=== PATIENT | female | born 1960 | race Caucasian/White ===

== ENCOUNTER 2018-03-28 07:30 | Outpatient (RCR) | payer BC, SELFPAY ==
--- NOTE | 2018-03-14 07:30 | NT_ITS ---
03/14/18 S: Patricia states she attended her independent program 3 days last week.. It is difficult for her to exercise with this humidity and heat. Overall she feels her functional activity at home is approaching what it was before she fractured her humerus. States she has been more compliant using her carla system at home. O: I assess her movement patterns, actively she is approximately 100 degrees with scapular substitution and tilting her back. I can passively lift her to well over 120, but she has a lag of about 30 degrees. She is able to put her L hand close to her L buttock now. Her AAROM in supine position ER is 90 degrees, IR is 75-80. Her pure GH movements are approximately 65-70 degrees on the L, 90 degrees on the R. She tolerates good resistance to ER and IR, scaption/abduction though is weak, as well as pure abduction. I review her carla exercises, and after she stretches I want her to try to hold that position, at its maximum height. Also the wall exercise when she is simulating scrubbing a wall overhead to lift her hand off the wall, along with other active movements in the prone position. After I mobilize her in supine position, I work on the lift component of D2 and then the entire D1 pattern. I then perform anti-gravity strengthening exercises in sidelying position, then in prone. AA with her arm resting on the plinth into forward elevation. Have her try to hold it isometrically at end range, which she is still unable to do. In close pack position of flexion/ abduction and ER. 30 mins at no charge completely her wellness in the clinic also. A: ROM continues to improve, she does have hypomobility at the GH joint of approximately 20 degrees, and weakness with her shoulder musculature, particularly the supraspinatus/deltoid component. P: Has a follow up in one week, she is going to continue with her exercises here in clinic on a daily basis. DLW/dl
--- NOTE | 2018-03-21 07:30 | NT_ITS ---
03/21/18 Patricia states she attended the clinic 2x last week, including the day of her treatment. She had other things going on later in the week, but she stated that she was still active, walking, etc . . . She also notes that she has been compliant with her HEP, frustrated over her inability to reach up overhead yet, which impairs all of her functional activities out to the side and overhead. Today session consist of mobilizing her in supine position, I can get full ER, IR starts creating some discomfort and resistance at around 70 degrees. I can eventually get her to 80 degrees with MET's and rolling, gliding the humeral head. She can lift her arm up to the 90 degree angle, perform circular movements, also protraction, retraction. I then do some PNF 1 and 2 patterns focusing on the lift component which is weak compared to the chop component. I then have her sidelying position and she can anti-gravity externally rotate with her elbow tucked into her side as well as ab/adduction, there is some trunk substitution. In prone position, she can extend to approximately +10 degrees of extension. I lift her up to +30 and have her try to hold it isometrically. We then work on weight shifting from 1 elbow to the other and when on the R elbow reaching forward and then AA range with her forehead resting on her R forearm and focusing on shoulder elevation. Also abduction, etc. . . . We then finish with carla and works out in the clinic to perform her wellness. Spends 75 mins total. No charge for today's session. She is encouraged to attend daily for regular conditioning and strengthening exercises. If not, make sure she is doing at home. Will have a follow up with me in one week. DLW/dl
--- NOTE | 2018-03-28 07:30 | NT_ITS ---
03/28/18 No new complaints offered. She feels that she uses her arm overhead better than she had a few weeks ago. It is inconsistent though. She also notes occasional vice like sensation around her upper arm which fluctuates from day to day. Today's session consisted of mobilizing her shoulder in supine position starting with rotation, flexion along with active movements overhead. Also in sidelying position ER and ab/adduction. She works into the abducted position, she tends to rotate her trunk, so I am trying to get her to stabilize it, keeping her trunk perpendicular to the rajwinder. Then prone on elbows with weight shifts, then forward elevation AA and then have her try to hold it isometrically. I can get her to around 145, but she has a lag of about 20-30 degrees. I put her in a close pack position of flexion/abduction, ER. She cannot fully abduct actively, but passively especially if I apply a posterior, humeral glide its a better position, but she cannot hold it isometrically. I upgrade her HEP to include some tubing exercises with scapular retraction and into ER with elbow tucked into her side (see copy). She was issued tubing for home along with illustrated hand out. She then completes her [facility] program in the clinic (see flow sheet). She has a follow up appt in one week, but continuing with her wellness as often as she can. She has been averaging 2-3x a week. NO CHARGE DLW/dl
--- NOTE | 2018-04-04 15:54 | NT_ITS ---
Patricia cancelled today's scheduled appointment. Obinna Aguayo P.T. gc
== END 2018-04-08 23:59 | disposition home or self-care (01) ==
LOC: PT 07:30
PROVIDERS: PCP Family Medicine; Referring Provider Orthopaedic Surgery; Visit Provider Orthopaedic Surgery
DX: S42.352D Displaced comminuted fracture of shaft of humerus, left arm, subsequent encounter for fracture with routine healing (principal)

== ENCOUNTER 2018-04-19 14:20 | Outpatient (CLI) | payer BC, SELFPAY ==
--- NOTE | 2018-04-19 09:57 | DI.RAD_ITS ---
SYMPTOM/DIAGNOSIS: F/U ORIF LEFT HUMERUS: Comparison is made with 02/08/18. A fixation plate remains in place in the humerus for fracture fixation. There has been no change in fracture alignment. No new abnormalities are seen.
== END 2018-04-19 14:40 ==
PROVIDERS: PCP Family Medicine; Visit Provider Orthopaedic Surgery
DX: S42.352D Displaced comminuted fracture of shaft of humerus, left arm, subsequent encounter for fracture with routine healing (principal)
CPT/HCPCS: 73060

== ENCOUNTER 2018-05-03 13:45 | Outpatient (CLI) | payer BC, SELFPAY ==
--- NOTE | 2018-05-03 11:35 | DI.RAD_ITS ---
SYMPTOMS/DIAGNOSIS: PAIN IN RIGHT KNEE, M25.561 RIGHT KNEE: Four views. There is moderate narrowing of both the medial and lateral femorotibial joint space. Periarticular spurring is seen involving all three joint compartments. No acute fracture or dislocation is seen. The bones appear osteopenic. There is a suprapatellar joint effusion present. The soft tissues are otherwise unremarkable. IMPRESSION: Moderate degenerative changes of the right knee.
== END 2018-05-03 14:05 ==
PROVIDERS: PCP Family Medicine; Visit Provider Family Medicine
DX: M25.561 Pain in right knee (principal); M17.11 Unilateral primary osteoarthritis, right knee
CPT/HCPCS: 73562

== ENCOUNTER 2018-07-05 01:07 | Outpatient (CLI) | payer BC, SELFPAY ==
--- NOTE | 2018-07-05 14:30 | DI.MAMMO_ITS ---
SYMPTOMS/DIAGNOSIS: SCREENING, Z12.31 BILATERAL SCREENING MAMMOGRAM: Mammograms were interpreted according to the usual protocol including computer analysis with CAD system, tomosynthesis and C view imaging. This is a baseline examination. The breasts are composed of fatty density tissue, breast density category A. No suspicious masses or suspicious microcalcifications are seen. IMPRESSION: Category 1A, negative mammogram. Yearly screening mammography is recommended. [facility] ASSESSMENT OF FINDINGS: Negative. Category 1. Patient will receive a letter notifying them of these results. BI-RAD category A. The breasts are almost entirely fatty.
== END 2018-07-05 01:27 ==
PROVIDERS: PCP Family Medicine; Visit Provider Family Medicine
DX: Z12.31 Encounter for screening mammogram for malignant neoplasm of breast (principal)
CPT/HCPCS: 77063; 77067

== ENCOUNTER 2018-07-08 07:43 | Outpatient (CLI) | payer BC, SELFPAY ==
[2018-07-08 09:41] LABS: Anion Gap 9.2 mmol/L (3-11); BUN 13 mg/dL (7-18); CO2 25.8 mmol/L (21.0-32.0); CREATININE 0.85 mg/dL (0.55-1.02); Calcium 8.6 mg/dL (8.5-10.1); Chloride 106 mmol/L (98-107); Cholesterol 168 mg/dL (50-200); Glucose 100 mg/dL (70-100); HDL Cholesterol 32 mg/dL (40-60); LDL CHOLESTEROL 127 mg/dL (<100); Potassium 4.1 mmol/L (3.5-5.1); Sodium 141 mmol/L (136-145); Triglyceride 65 mg/dL (30-150)
== END 2018-07-08 08:03 ==
PROVIDERS: PCP Family Medicine; Visit Provider Family Medicine
DX: Z00.00 Encounter for general adult medical examination without abnormal findings (principal); Z13.228 Encounter for screening for other metabolic disorders; Z13.220 Encounter for screening for lipoid disorders
CPT/HCPCS: 36415; 80048; 80061; 83721

== ENCOUNTER 2018-07-19 09:17 | Outpatient (CLI) | payer BC, SELFPAY ==
--- NOTE | 2018-07-19 08:58 | DI.RAD_ITS ---
SYMPTOM/DIAGNOSIS: F/U NON UNION LEFT HUMERUS: Comparison is made with 19 Apr 2018. There has been no change in the screw and plate fixation along the humeral shaft or fracture alignment. There has been continued healing when compared with the previous exam.
== END 2018-07-19 09:37 ==
PROVIDERS: PCP Family Medicine; Visit Provider Orthopaedic Surgery
DX: S42.352D Displaced comminuted fracture of shaft of humerus, left arm, subsequent encounter for fracture with routine healing (principal)
CPT/HCPCS: 73060

== ENCOUNTER 2018-11-30 10:06 | Day surgery (SDC) | payer BC, SELFPAY ==
--- NOTE | 2018-11-30 07:06 | W.COLOREPORT ---
Date of service: 11/30/18 Time of Service: 11:38 Colonoscopy Report Date of procedure: 11/30/18 Pre-op diagnosis general: Colon Cancer screening/ Chronic diarrhea Post-op diagnosis procedure note: other (Magana-diverticulosis, descending colon polyp) Procedure: Colonoscopy with polypectomy by cold forceps Surgeon: Tara Cameron Anesthesia proc note operative: other (general/ ASA 3/ Sadaf Hidalgo CRNA and DAVID Hernandez) Estimated blood loss (mL): 3 Pathology: other (descending colon polyp) Complications: None Disposition: same day Indications: Mrs. Singletary is a pleasant 58 year old female seen in the office for a screening colonoscopy. She also has a history of chronic diarrhea. Risks, benefits and complications have been reviewed. Complications include but are not limited to bleeding, pain, perforation, missed small lesion/polyp, sore throat, aspiration and adverse reaction to the medications. Questions were entertained and answered to their satisfaction and they wished to proceed. No guarantees were given or implied. Prep: Miralax/Dulcolax Procedure Start Time: 11:38 Procedure End Time: 12:00 Retraction Time: 19 minutes Findings: One sessile descending colon polyp and magana-diverticulosis left > then right. Procedure Description: After informed consent was obtained the patient was taken to the procedure room and placed in a left decubitous position. Monitors were applied and a time out was done. The patients name, date of , procedure, allergies to medications and metal in their body was reviewed. The patient was then sedated. Once sedated and comfortable a rectal exam was done. External exam was normal. Internal exam revealed a normal sphincter tone and no palpable masses. The scope was then introduced and retro-flexed. No internal hemorrhoids were identified. The scope was then advanced to the cecum without difficulty. The TI and appendiceal orifice were identified. The prep was adequate. The scope was then slowly retracted over 19 minutes back into the rectum. Polyps were removed in the descending colon. The scope was removed and the patient was woken up and taken back to Same day surgery in stable condition. The patient tolerated the procedure well and there were no immediate complications. Follow up: The patient should follow up in 3-5 years unless they develop changes in bowel habits or other new gastrointestinal complaints.
--- NOTE | 2018-11-30 07:09 | COLE_ITS ---
Date of service: 11/30/18 Time of Service: 11:38 Colonoscopy Report Date of procedure: 11/30/18 Pre-op diagnosis general: Colon Cancer screening/ Chronic diarrhea Post-op diagnosis procedure note: other (Magana-diverticulosis, descending colon polyp) Procedure: Colonoscopy with polypectomy by cold forceps Surgeon: Tara Cameron Anesthesia proc note operative: other (general/ ASA 3/ Sadaf Hidalgo CRNA and DAVID Hernandez) Estimated blood loss (mL): 3 Pathology: other (descending colon polyp) Complications: None Disposition: same day Indications: Mrs. Singletary is a pleasant 58 year old female seen in the office f or a screening colonoscopy. She also has a history of chronic diarrhea. Risks, benefits and complications have been reviewed. Complications include but are not limited to bleeding, pain, perforation, missed small lesion/polyp, sore throat, aspiration and adverse reaction to the medications. Questions were entertained and answered to their satisfaction and they wished to proceed. No guarantees we re given or implied. Prep: Miralax/Dulcolax Procedure Start Time: 11:38 Procedure End Time: 12:00 Retraction Time: 19 minutes Findings: One sessile descending colon polyp and magana-diverticulosis left > then right. Procedure Description: After informed consent was obtained the patient was taken to the procedure room and placed in a left decubitous position. Monitors were applied and a time out was done. The patients name, date of , procedure, allergies to medications and metal in their body was reviewed. The patient was then sedated. Once sedated and comfortable a rectal exam was done. External exam was normal. Internal exam revealed a normal sphincter tone and no palpable masses. The scope was then introduced and retro-flexed. No internal hemorrhoids were identified. The scope was then advanced to the cecum without difficulty. The TI and appendiceal orifice were identified. The prep was adequate. The scope was then slowly retracted over 19 minutes back into the rectum. Polyps were removed in the descending colon. The scope was removed and the patient was woken up and taken back to Same day surgery in stable condition. The patient tolerated the procedure well and there were no immediate complications. Follow up: The patient should follow up in 3-5 years unless they develop changes in bowel habits or other new gastrointestinal complaints.
--- NOTE | 2018-11-30 07:11 | W.PM.DSUDISC ---
Discharge Plan Disposition Patient Disposition: HOME Condition: Good Discharge Details Reason For Visit: Colon Cancer screening Attending Provider: Tara Cameron Primary Care Provider: Mariano Alcantar Home Meds and New Rx's Prescriptions: Continued sertraline 50 mg tablet 50 mg PO DAILY Qty: 90 RF: 3 ibuprofen 800 mg tablet 800 mg PO TID PRN (Reason: pain) Qty: 30 RF: 2 Discharge Instructions Instructions: Colonoscopy (DC), Diverticulosis (DC), Colorectal Polyps (DC) Additional Instructions: Findings: 1 polyp Diverticulosis Follow up: 3-5 years Please call if you develop: fevers >101.5 Nausea or Vomiting Abdominal pain that is not transient DAY SURGERY UNIT POST COLONOSCOPY INSTRUCTIONS 1. Because there will be medication in your system for the next 24 hours, you may feel a little sleepy. Your coordination will be affected. Therefore: a. Do not drive or operate dangerous equipment for 24 hours. b. Do not drink alcohol beverages for 24 hours (not even beer). c. Plan to go home and rest for the day. 2. Generally there are no restrictions on your activity after a day or so has gone by, but you may feel a bit fatigued for a few days. 3 After you arrive home you may have a light meal and return to a normal diet as you can tolerate it without feeling sick to your stomach. 4. After surgery, you may feel pain or discomfort. This should be only transient, but if it persists please contact your doctor. 5. If there are any questions regarding the findings of your procedure, please feel free to contact your doctor. 6. If you are unable to contact your doctor with a problem, contact the hospital at [phone]. 7. Continue all your regular medications unless directed otherwise. I understand the above instructions and have no questions. Signature of Patient or Responsible Adult Escort Date/Time Name of Responsible Adult Escort Signature of Nurse Date/Time Activity:: Activity as Tolerated Diet:: high fiber diet Discharge Orders Discharge Orders: Discharge Order (Routine); Ordered 11/30/18 Ordered By: Tara Cameron DS: Diagnosis Discharge Diagnosis (1) S/P colonoscopy: Status: Acute (2) Colorectal polyps: Status: Acute (3) Diverticulosis: Status: Acute
[2018-11-30 10:24] VITALS: BP 165/69; PULSE 64; RESP 18; TEMP 36.6; O2SAT 96
[2018-11-30] MEDS: Lactated Ringers 1,000 ML 80 ML IV (10:45)
--- NOTE | 2018-11-30 11:50 | BOWEL_PTH ---
PATIENT: Patricia Singletary LOC: [facility] U#:[id number] AGE/SX: 58/F ROOM: RE11/30/[address]: Tara Cameron MD : 1960 BED: DIS: 11/30/2018 SPEC #: [id number] RECD: 11/30/18 12:51 STATUS: [facility] REQ #: [id number] NIDHI: 11/30/18 11:[address]: Tara Cameron DEPT: Surgical Specimen RECD BY: Valorie Hou ENTERED: 11/30/18 12:51 SP TYPE: Bowel OTHR DR: Mariano Alcantar MD Tissues: 1 - BIOPSY BOWEL Procedures: GROSS AND MICRO LEVEL 4 Comments: [id number]
[2018-11-30 12:39] VITALS: BP 125/63; PULSE 53; RESP 18; TEMP 36.4; O2SAT 98
== END 2018-11-30 13:05 | disposition home or self-care (01) ==
LOC: SUR 10:07
PROVIDERS: PCP Family Medicine; Visit Provider Surgery
PROC: 0DJD8ZZ Inspection of Lower Intestinal Tract, Via Natural or Artificial Opening Endoscopic (ICD-10-PCS; CPT 45378; principal; 2018-11-30 10:45)
DX: Z12.11 Encounter for screening for malignant neoplasm of colon (principal); R19.7 Diarrhea, unspecified; D12.4 Benign neoplasm of descending colon; K57.30 Diverticulosis of large intestine without perforation or abscess without bleeding
CPT/HCPCS: 45380; 88305

== ENCOUNTER 2020-01-25 04:37 | Outpatient (CLI) | payer OTHER, SELFPAY ==
[2020-01-25 08:55] LABS: Anion Gap 7.2 mmol/L (3-11); BUN 16 mg/dL (7-18); CO2 25.8 mmol/L (21.0-32.0); CREATININE 0.95 mg/dL (0.55-1.02); Calcium 8.1 mg/dL (8.5-10.1); Chloride 107 mmol/L (98-107); Glucose 104 mg/dL (74-106); Potassium 3.9 mmol/L (3.5-5.1); Sodium 140 mmol/L (136-145)
== END 2020-01-25 04:57 ==
PROVIDERS: PCP Family Medicine; Visit Provider Family Medicine
DX: Z79.1 Long term (current) use of non-steroidal anti-inflammatories (NSAID) (principal); M17.11 Unilateral primary osteoarthritis, right knee
CPT/HCPCS: 36415; 80048

== ENCOUNTER 2020-05-09 02:49 | Outpatient (CLI) | payer OTHER, SELFPAY ==
--- NOTE | 2020-05-09 06:45 | DI.MAMMO_ITS ---
EXAM: MAMMO SCREENING CLINICAL HISTORY: screening,Z12.39 TECHNIQUE: Mammograms were interpreted according to the usual protocol including computer analysis w [employer] CAD system, tomosynthesis and C-view imaging. COMPARISON: 2018 FINDINGS: The breasts are composed of mainly fatty density , Breast Density category A. No suspicious masses or suspicious microcalcifications are seen. No skin thickening or abnormal axillary lymph nodes are seen. There has been no significant change from prior exams. IMPRESSION: BI-RADS Category 1, Negative mammogram Yearly screening mammography is recommended. Breast Density - Category A, fatty density. A negative radiographic report should not delay biopsy if a dominant or clinically suspicious mass is present. Up to ten percent of cancers are not identified on mammography. A negative report may reinforce clinical impression. Adenosis and dense breasts may obscure an underlying neoplasm. False positive reports average 6 to 10%. Patient will receive a letter notifying them of these results.
== END 2020-05-09 03:09 ==
PROVIDERS: PCP Nurse Practitioner Family; Visit Provider Family Medicine
DX: Z12.31 Encounter for screening mammogram for malignant neoplasm of breast (principal)
CPT/HCPCS: 77063; 77067

== ENCOUNTER 2020-07-01 04:35 | Outpatient (CLI) | payer OTHER, SELFPAY ==
[2020-07-01 10:04] LABS: Hemoglobin A1C 5.6 % (<5.7)
[2020-07-01 13:47] LABS: Anion Gap 11.4 mmol/L (3-11); BUN 13 mg/dL (7-18); CO2 23.6 mmol/L (21.0-32.0); CREATININE 0.84 mg/dL (0.55-1.02); Calcium 8.4 mg/dL (8.5-10.1); Calculated LDL 134 mg/dL (<100); Chloride 107 mmol/L (98-107); Cholesterol 180 mg/dL (<200); Glucose 95 mg/dL (74-106); HDL Cholesterol 33 mg/dL (40-60); Potassium 4.3 mmol/L (3.5-5.1); Sodium 142 mmol/L (136-145); Triglyceride 69 mg/dL (<150)
== END 2020-07-01 04:55 ==
PROVIDERS: PCP Nurse Practitioner Family; Visit Provider Nurse Practitioner Family
DX: E78.5 Hyperlipidemia, unspecified (principal); R79.89 Other specified abnormal findings of blood chemistry
CPT/HCPCS: 36415; 80048; 80061; 83036

== ENCOUNTER 2020-07-08 13:49 | Outpatient (REF) | payer OTHER, SELFPAY ==
--- NOTE | 2020-07-08 09:40 | PAPFT_PTH ---
PATIENT: Patricia Singletary LOC: [facility] U#:[id number] AGE/SX: 59/F ROOM: RE07/08/[address]: DIANA Soto : 1960 BED: DIS: 07/08/2020 SPEC #: [id number] RECD: 07/08/20 18:28 STATUS: [facility] REScout #: [id number] NIDHI: 07/08/20 09:[address]: Kavya Morgan DEPT: [facility] Cytology RECD BY: Valorie Hou Tissues: 1 - CX/ENDOCX FOR PAP SMEARS Procedures: PAP THIN PREP/UVM Screening HPV DNA PROBE Comments: [id number]
== END 2020-07-08 14:09 ==
LOC: LBN 13:49
PROVIDERS: PCP Nurse Practitioner Family; Visit Provider Nurse Practitioner Family
DX: Z12.4 Encounter for screening for malignant neoplasm of cervix (principal); Z11.51 Encounter for screening for human papillomavirus (HPV)
CPT/HCPCS: 88142; 87624

== ENCOUNTER 2020-11-29 03:55 | Outpatient (CLI) | payer OTHER, SELFPAY ==
--- NOTE | 2020-11-29 07:45 | DI.MRI_ITS ---
EXAM: MR BRAIN WO/W CLINICAL HISTORY: abnormal sclerotic density, left side of skull basE,R93.0. TECHNIQUE: Multiplanar multisequence MRI of the brain was performed. CONTRAST MATERIAL: IV Contrast: 20 ML of Dotarem contrast administered. COMPARISON: CT CT HEAD WO from 11/06/[address] HEAD WO from 11/06/2020 FINDINGS: VENTRICLES AND EXTRA AXIAL SPACES: Normal in size and morphology for the patient's age. Tiny focus o f fatty signal in the atrium of the right lateral ventricle. HEMORRHAGE: None. CEREBRAL PARENCHYMA: No focus of restricted diffusion to suggest acute infarct. No space-occupying le roxanna identified. No abnormal areas of enhancement. Prominent perivascular spaces, greatest in the left temporoparietal region. MIDLINE SHIFT: None. BRAINSTEM/CEREBELLUM: Normal. CALVARIUM: There is expansion of the left sphenoid wing and left side of the clivus and subjacent sku ll base. There is loss of normal fatty marrow signal. There are no invasive features. The bony detai l is better seen on CT. ENHANCEMENT: No suspicious enhancement identified. VISUALIZED PARANASAL SINUSES/MASTOIDS: Clear. OTHER FINDINGS: Pituitary normal in size. The orbits are unremarkable. The vascular flow voids appear intact. IMPRESSION: Expansile sclerotic bony lesion of the left sphenoid wing involving part the clivus and left temporal skull base. No invasive qualities are significant enhancement. 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 No significant abnormalities are seen in the brain. DATA REPOSITORY:
[2020-11-29 13:45] LABS: CREATININE 0.9 mg/dL (0.55-1.02)
[2020-11-29] MEDS: Normal Saline Flush 10 ML SYR IVP (13:54)
[2020-11-29] MEDS: Gadoterate meglumine 20 ML VIAL IVP (13:57)
== END 2020-11-29 04:15 ==
PROVIDERS: PCP Nurse Practitioner Family; Visit Provider Nurse Practitioner Family
DX: R93.0 Abnormal findings on diagnostic imaging of skull and head, not elsewhere classified (principal); M85.08 Fibrous dysplasia (monostotic), other site; Z01.812 Encounter for preprocedural laboratory examination
CPT/HCPCS: 70553; 82565

== ENCOUNTER 2022-05-11 02:33 | Outpatient (CLI) | payer MEDICARE, SELFPAY ==
--- NOTE | 2022-05-11 13:52 | DI.RAD_ITS ---
Exam(s) XR KNEE RT 3V AP,LAT,NORM EXAM: XR KNEE RT 3V AP,LAT,NORM CLINICAL HISTORY: right knee pain,M17.011,OA RT KNEE. TECHNIQUE: 2D digital imaging was performed. Three views. COMPARISON: CR RIGHT KNEE 3 VIEWS from 01/11/2013 FINDINGS: BONES: No acute fracture is present. No bony destructive lesion is seen. JOINTS: There is severe narrowing of the lateral femoral tibial joint space and prominent periarticul ar spurring. Spurring is also noted at the tibial spines and femoral intercondylar notch. There is narrowing of the patellofemoral joint which also shows periarticular spurring. No joint effusion is seen. SOFT TISSUE: Normal. IMPRESSION: Severe degenerative changes of the lateral femoral tibial joint. DATA REPOSITORY: RADIATION DOSE DELIVERED:
== END 2022-05-11 02:53 ==
LOC: DI 02:33
PROVIDERS: PCP Nurse Practitioner Family; Visit Provider Nurse Practitioner Family
DX: M25.561 Pain in right knee (principal); M17.11 Unilateral primary osteoarthritis, right knee
CPT/HCPCS: 73562

== ENCOUNTER 2022-05-19 02:56 | Outpatient (CLI) | payer MEDICARE, SELFPAY ==
[2022-05-19 09:26] LABS: Anion Gap 6.4 mmol/L (3-11); BUN 13 mg/dL (7-18); CO2 28.6 mmol/L (21.0-32.0); CREATININE 0.9 mg/dL (0.55-1.02); Calcium 8.8 mg/dL (8.5-10.1); Calculated LDL 112 mg/dL (<100); Chloride 105 mmol/L (98-107); Cholesterol 161 mg/dL (<200); Estimated GFR 71.83 (mL/min/1.73m2); Glucose 100 mg/dL (74-106); HDL Cholesterol 37 mg/dL (40-60); Potassium 4.4 mmol/L (3.5-5.1); Sodium 140 mmol/L (136-145); Triglyceride 64 mg/dL (<150)
== END 2022-05-19 02:57 | disposition home or self-care (01) ==
LOC: LBO 02:56
PROVIDERS: PCP Nurse Practitioner Family; Visit Provider Nurse Practitioner Family
DX: E78.5 Hyperlipidemia, unspecified (principal)
CPT/HCPCS: 36415; 80048; 80061

== ENCOUNTER → 2022-07-10 00:28 | Outpatient (CLI) | payer MEDICARE, SELFPAY ==
--- NOTE | 2022-07-10 12:42 | DI.MAMMO_ITS ---
Exam(s) MAMMO SCREENING EXAM: MAMMO SCREENING CLINICAL HISTORY: screening,Z12.39 TECHNIQUE: Mammograms were interpreted according to the usual protocol including computer analysis w [employer] CAD system, tomosynthesis and C-view imaging. COMPARISON: 2017 and 2019 FINDINGS: The breasts are composed of mainly fatty density , Breast Density category A. No suspicious masses or suspicious microcalcifications are seen. No skin thickening or abnormal axillary lymph nodes are seen. There has been no significant change from prior exams. IMPRESSION: BI-RADS Category 1, Negative mammogram Yearly screening mammography is recommended. Breast Density - Category A, fatty density. A negative radiographic report should not delay biopsy if a dominant or clinically suspicious mass is present. Up to ten percent of cancers are not identified on mammography. A negative report may reinforce clinical impression. Adenosis and dense breasts may obscure an underlying neoplasm. False positive reports average 6 to 10%. Patient will receive a letter notifying them of these results.
== END ==
PROVIDERS: PCP Nurse Practitioner Family; Visit Provider Nurse Practitioner Family
DX: Z12.31 Encounter for screening mammogram for malignant neoplasm of breast (principal)
CPT/HCPCS: 77063; 77067

== ENCOUNTER 2023-05-10 10:09 | Outpatient (CLI) | payer MEDICARE, SELFPAY ==
--- NOTE | 2023-05-10 10:00 | RT.EKG_ITS ---
APPROVED REPORT Exam: Resting ECG Reason for Exam: left sided chest pain Patient Location: O HR:84 bpm ECG Measurements Heart Rate 84 AXIS NJ 173 P 32 QRSd 94 QRS 17 QT 362 T 63 QTc 428 Conclusion Sinus rhythm...normal P axis, V-rate 50- 99 Normal Electrocardiogram
== END 2023-05-10 10:10 | disposition home or self-care (01) ==
LOC: DI.CM 10:10
PROVIDERS: PCP Nurse Practitioner Family; Visit Provider Nurse Practitioner Family
DX: R07.9 Chest pain, unspecified (principal)
CPT/HCPCS: 93010

== ENCOUNTER 2023-05-10 10:49 | Emergency (ER) | payer MEDICARE, SELFPAY ==
[2023-05-10] VITALS (17 sets, daily range): BP systolic 132–173; BP diastolic 55–87; PULSE 76–103; RESP 12–24; O2SAT 91–99
--- NOTE | 2023-05-10 10:45 | DI.RAD_ITS ---
Exam(s) XR PORTABLE CHEST AP EXAM: XR PORTABLE CHEST AP CLINICAL HISTORY: chest pain. TECHNIQUE: 2D digital imaging was performed. COMPARISON: No exams were available for comparison FINDINGS: Single AP portable view. Heart size is upper normal. The mediastinum is not widened. Lungs are clear. No infiltrates nor obvious pleural effusions. IMPRESSION: No acute pulmonary findings on this single AP portable view of the chest. DATA REPOSITORY: RADIATION DOSE DELIVERED:
--- NOTE | 2023-05-10 10:45 | RT.EKG_ITS ---
APPROVED REPORT Exam: Resting ECG Reason for Exam: Chest Pain Patient Location: E HR:90 bpm ECG Measurements Heart Rate 90 AXIS OK 173 P 40 QRSd 93 QRS 24 QT 337 T 60 QTc 414 Conclusion Sinus rhythm...normal P axis, V-rate 60- 99 ST elevation, consider inferior injury...ST >0.08mV, II III aVF
[2023-05-10 11:14] LABS: Abs Immature Grans 0.02 10^3/uL (0.0-0.06); Absolute Basophil Count 0.02 10^3/uL (0.0-0.2); Absolute Eosinophil Count 0.07 10^3/uL (0.0-0.7); Absolute Lymphocyte Count 1.31 10^3/uL (1.2-3.4); Absolute Monocyte Count 0.63 10^3/uL (0.1-0.8); Absolute Neutrophil Count 4.57 10^3/uL (1.2-6.7); Basophils % 0.3; Eosinophils % 1.1; HCT 37.9 % (36.0-46.0); HGB 11.9 g/dL (11.2-15.7); Immature Grans % 0.3; Lymphocytes % 19.8; MCH 24.7 pg (27.0-33.0); MCHC 31.4 % (32.0-36.0); MCV 79 fL (80-95); Monocytes % 9.5; Platelet Count 257 10^3/uL (130-400); RBC 4.81 10^6/uL (3.93-5.22); RDW 14.1 % (11.7-14.6); RDW-SD 40.7 fL; WBC 6.62 10^3/uL (4.4-10.8)
--- NOTE | 2023-05-10 11:30 | DI.CT_ITS ---
Exam(s) CT THORAX ABD/PEL CTA EXAM: CT THORAX ABD/PEL CTA CLINICAL HISTORY: chest pain, elevated BP. TECHNIQUE: Imaging Protocol: Axial computed tomography images with coronal and sagittal reformatted images were created and reviewed CONTRAST MATERIAL: Intravenous: Omnipaque 350 Contrast volume:100 ml Oral: None COMPARISON: CR XR PORTABLE CHEST AP from 05/10/2023 FINDINGS: CHEST: AORTA: Diameter of the ascending thoracic aorta is normal. Diameter of the arch and descending thora cic aorta are normal. There is no evidence of aortic dissection. No pericardial effusion. The abdo tacho aorta also appears unremarkable without evidence of dissection or significant atherosclerotic d isease. There is minimal atherosclerotic disease at the aortic bifurcation. Common iliac arteries a ppear unremarkable as do the external iliac arteries and common femoral arteries. Internal iliac art eries are patent and nonaneurysmal. LUNGS: No infiltrates nor pleural effusions. No ominous nodules.. MEDIASTINUM: There is no hilar nor mediastinal adenopathy. Visualized thyroid unremarkable. CARDIAC: Heart size upper normal. No pericardial effusion. No obvious coronary artery calcification . ABDOMEN: There is no evidence of abdominal aortic aneurysm nor dissection.There is no aneurysmal dilatation of the common iliac arteries.The celiac and superior mesenteric arteries are patent. There is no ascites. LIVER: There are no focal hepatic lesions nor dilatation of intrahepatic ducts. GALLBLADDER/BILIARY: The gallbladder lumen is filled with multiple facet stones. Cannot accurately e valuate the gallbladder wall because of the amount of respiratory motion artifact here. There is no obvious pericholecystic fluid. CBD does not appear obviously dilated. PANCREAS: No evidence of pancreatic mass nor dilatation of the pancreatic duct. SPLEEN: Spleen is not enlarged. There are no intrasplenic lesions. Splenic and portal veins are velázquez nt. ADRENALS: There are no significant adrenal masses. KIDNEYS: There is a benign cyst in the superior pole the left kidney which measures 4 x 4 cm. Does n ot require further imaging workup. No solid renal masses. No calculi. No hydronephrosis. Tiny 4 m illimeter cyst in the inferior pole opposite right kidney noted. Does not require further workup.. LYMPH NODES: There is no retroperitoneal nor para-aortic adenopathy. No obvious mesenteric masses. ABDOMINAL WALL: There is anterior abdominal wall midline umbilical fat containing hernia. This does not contain bowel loops. Hernia sac does not contain fluid. GI: There is no evidence of bowel obstruction, free air, nor abscess. PELVIS: LYMPH NODES: There is no intrapelvic nor inguinal adenopathy. GI: No evidence of appendicitis.There is sigmoid diverticuli without evidence of obvious acute divert iculitis. URINARY BLADDER: No calculi nor masses evident REPRODUCTIVE: Uterus and adnexal regions unremarkable and there is no free fluid. OSSEOUS: No significant osseous lesions. No fractures. IMPRESSION: 1. No evidence of aortic dissection nor aneurysm. Heart size upper normal. No pericardial effusion 2. No evidence of thoracic nor abdominal aortic aneurysm. Also no aneurysms of the iliac vessels. O nly minimal atherosclerotic disease evident in the aorta. 3. Multiple gallstones noted. If clinically indicated follow-up ultrasound could be performed to det ermine if there is acute cholecystitis as the gallbladder wall is blurred by respiratory motion artif act. There is no obvious pericholecystic fluid and common hepatic duct is not appear dilated. Called by myself to ER physician RADIATION DOSE DELIVERED: 1,317.46mGy.cm Total DLP DATA REPOSITORY: All CT scans at this facility are submitted to the National Radiology Data Registry (NRDR) Dose Index Registry (DIR) with the [employer] (ACR). RADIATION OPTIMIZATION: All CT scans at this facility use at least one of these dose optimization te chniques: automated exposure control; mA and/or kV adjustment per patient size (includes targeted exa ms where dose is matched to clinical indication); or iterative reconstruction.
[2023-05-10 11:32] LABS: ALT 16 U/L (14-59); AST 10 U/L (15-37); Alkaline Phosphatase 140 U/L (46-116); Anion Gap 7.3 mmol/L (3-11); BUN 11 mg/dL (7-18); Bilirubin, Total 0.5 mg/dL (0.2-1.0); CO2 25.7 mmol/L (21.0-32.0); CREATININE 0.9 mg/dL (0.55-1.02); Calcium 9.1 mg/dL (8.5-10.1); Chloride 104 mmol/L (98-107); Estimated GFR 71.39 (mL/min/1.73m2); Glucose 84 mg/dL (74-106); Magnesium 1.9 mg/dL (1.8-2.4); Potassium 3.8 mmol/L (3.5-5.1); Sodium 137 mmol/L (136-145); Total Protein 7.6 g/dL (6.4-8.2); Troponin I < 50 ng/L (<or=60)
--- NOTE | 2023-05-10 11:41 | ED.GENADUL_ITS ---
Discharge Plan Disposition Patient Disposition: Home Condition: Stable Discharge Details Clinical Impression: Chest pain Primary Care Provider: Kavya Morgan ED Provider: Ganesh Leavitt Home Meds and New Rx's Prescriptions: New aspirin 325 mg tablet 325 mg PO DAILY Qty: 30 0RF Continued ibuprofen 800 mg tablet 800 mg PO BID PRN (Reason: pain) Qty: 60 2RF Rx Instructions: Take 1 pill twice a day with food as needed for pain Discharge Instructions Instructions: Chest Pain (ED), Gallstones (ED) Additional Instructions: Your blood pressure was elevated today. Please be sure to discuss this with your doctor. Your work-up today was nondiagnostic. It is recommended you have a cardiac st ress test performed outpatient as soon as possible. Please call your doctor today to arrange timely follow-up. Call today. Return to the ER immediately for any worsening or new concerning symptoms. Referrals: Kavya Morgan, PACO [Primary Care Provider] - Discharge Data Discharge Date/Time-TO BE ENTERED AT DEPARTURE: 05/10/23 15:37 Medical Decision Making 1142??62-year-old female with history of hyperlipidemia, obesity, presents with chest pain that started yesterday afternoon and has persisted. Patient is saturating well in no respiratory distress. She is hypertensive. EKG was reviewed and interpreted by me: Please see report, sinus rhythm 90 bpm, subtle <[address] elevation in lead III and aVF. Chest x-ray reviewed and interpreted by radiology: No acute pulmonary findings on the single AP portable view of the chest. Heart size is upper normal. The mediastinum is not widened. Lungs are clear. Concern for ACS. Initial troponin negative. Plan to trend. Patient is hypertensive which is atypical for her, consider acute life- threatening thoracic aortic dissection. Plan to obtain CTA of the chest. 1415 -- CTA was interpreted by radiology: 1. No evidence of aortic dissection nor aneurysm.? Heart size upper normal.? No pericardial effusion 2. No evidence of thoracic nor abdominal aortic aneurysm.? Also no aneurysms of the iliac vessels.? Only minimal atherosclerotic disease evident in the aorta. 3. Multiple gallstones noted.? If clinically indicated follow-up ultrasound could be performed to determine if there is acute cholecystitis as the gallbladder wall is blurred by respiratory motion artifact.? There is no obvious pericholecystic fluid and common hepatic duct is not appear dilated. Initial labs reviewed and troponin negative. Delta troponin pending. Patient reassessed and notes discomfort has resolved. Patient requesting discharge. Patient willing to stay at my recommendation for delta troponin. 1430 --delta troponin negative. Plan for discharge with outpatient follow-up with PCP. It is recommended the patient have stress test performed in the outpatient setting as soon as possible. Usual customary discharge instructions were reviewed with the patient. Lab Data Lab results reviewed: Yes I reviewed the patient's lab results. Labs: Laboratory Tests Range/Units 05/10/23 05/10/23 05/10/23 11:05 11:05 13:52 WBC (4.4-10.8) 10^3/uL 6.62 RBC (3.93-5.22) 10^6/uL 4.81 Hgb (11.2-15.7) g/dL 11.9 Hct (36.0-46.0) % 37.9 MCV (80-95) fL 79 L MCH (27.0-33.0) pg 24.7 L MCHC (32.0-36.0) % 31.4 L RDW (11.7-14.6) % 14.1 Plt Count (130-400) 10^3/uL 257 MPV (8.0-11.0) fL 9.0 Immature Gran % 0.3 Neutrophils % 69.0 Lymphocytes % 19.8 Monocytes % 9.5 Eosinophils % 1.1 Basophils % 0.3 Nucleated RBC % (0.0-0.3) % 0.0 Absolute Neutrophils (1.2-6.7) 10^3/uL 4.57 Absolute Lymphocytes (1.2-3.4) 10^3/uL 1.31 Absolute Monocytes (0.1-0.8) 10^3/uL 0.63 Absolute Eosinophils (0.0-0.7) 10^3/uL 0.07 Absolute Basophils (0.0-0.2) 10^3/uL 0.02 Sodium (136-145) mmol/L 137 Potassium (3.5-5.1) mmol/L 3.8 Chloride (98-107) mmol/L 104 Carbon Dioxide (21.0-32.0) mmol/L 25.7 Anion Gap (3-11) mmol/L 7.3 BUN (7-18) mg/dL 11 Creatinine (0.55-1.02) mg/dL 0.9 Est GFR (CKD-EPI 2020) (mL/min/1.73m2) 71.39 Glucose (74-106) mg/dL 84 Calcium (8.5-10.1) mg/dL 9.1 Magnesium (1.8-2.4) mg/dL 1.9 Total Bilirubin (0.2-1.0) mg/dL 0.5 AST (15-37) U/L 10 L ALT (14-59) U/L 16 Alkaline Phosphatase (46-116) U/L 140 H Troponin I (<or=60) ng/L < 50 < 50 Total Protein (6.4-8.2) g/dL 7.6 Albumin (3.4-5.0) g/dL 3.0 L HPI General Mode of arrival: ambulatory . Date/Time Provider Initiated Documentation: 05/10/23 10:53 . Limitations to Documentation: no limitations . Information obtained by: patient . HPI Narrative: 62-year-old female with history of hyperlipidemia and obesity, sent by PCP for chest discomfort. Patient notes she has had discomfort since 3 PM yesterday. Discomfort is described as a tightness in her left anterior chest. Pain does not seem to worsen with deep inspiration. No associated shortness of breath, nausea, diaphoresis, leg swelling or calf pain. No abdominal pain. Patient has never had similar discomfort in the past. Related Data Home Medications Medication Instructions Recorded Confirmed ibuprofen 800 mg tablet 800 mg PO BID PRN pain #60 tabs 05/13/20 05/10/23 aspirin 325 mg tablet 325 mg PO DAILY #30 tabs 05/10/23 Previous Rx's Medication Instructions Recorded ibuprofen 800 mg tablet 800 mg PO BID PRN pain #60 tabs 05/13/20 aspirin 325 mg tablet 325 mg PO DAILY #30 tabs 05/10/23 Allergies Allergy/AdvReac Type Severity Reaction Status Date / Time No Known Allergies Allergy Verified 05/10/23 10:59 General Stated Complaint: Chest Pain SHANTA: 2 Review of Systems All systems reviewed & are unremarkable except as noted in HPI and below Constitutional Constitutional: Denies fever(s) Cardiovascular Cardiovascular: Reports as per HPI PFSH All Active Problems (Updated 05/10/23 @ 14:33 by Ganesh Leavitt MD) Chest pain (Acute) Insomnia (Chronic) Osteoarthritis of right knee (Chronic) Hyperlipidemia (Chronic) Diverticulosis of colon (Chronic) Hearing loss (Chronic) Obesity, Class III, BMI 40-49.9 (morbid obesity) (Chronic) Medical History Major depressive disorder Tubular adenoma of colon Surgical History S/P colonoscopy (11/30/18) Family History Mother , AGE 64 COPD (chronic obstructive pulmonary disease) Father , AGE 70 No problems noted. Sister No problems noted. Son No problems noted. Son No problems noted. Maternal Grandfather No problems noted. Maternal Grandmother No problems noted. Paternal Grandfather No problems noted. Paternal Grandmother No problems noted. Social History Smoking/Tobacco Use Status: Never Smoking risk assessment performed?: Yes Alcohol Intake: never Drug use: Never Household members: spouse Housing: house Communication Needs: Hard of Hearing Do you need help understanding health information?: Rarely Pets and animals: Yes Pets and animals: dog(s) Sexually active: No Do you think of yourself as: straight/heterosexual Current gender identity: male What is your relationship status?: How often do you talk on the phone with friends or family?: never How often do you get together with friends or relatives?: never Do you belong to any clubs or organized social groups?: no Panel score (0-1 are the most socially isolated patients): 1 What type of physical activity do you participate in: none Duration: < 15 minutes/day Frequency: 1-2 times per week Alpa/Hoahaoism: Shinto Special alpa needs: No Seatbelt use: always Drive intox or ride w/intox 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 Do you feel safe in your relationship?: Yes Victim of physical abuse: No Victim of emotional abuse: No Victim of sexual abuse: No Would you like helpful sources: No Female Reproductive History Menstrual Menopause type: natural History History 2 Para 2 Hx # Term Pregnancies Multiple births Hx # Pregnancies Ectopic pregnancies AB induced Hx Number of Living Children 2 AB spontaneous Exam Const General: cooperative and no acute distress HENMT Mouth: moist mucous membranes Eyes Conjunctivae: normal conjunctivae Sclera: normal sclerae Neck Neck: trachea midline and supple Resp Auscultation: clear to auscultation bilaterally, no rales, no rhonchi and no wheezes Cardio Rate: regular rate and not tachycardic Rhythm: regular rhythm GI Palpation: soft, not firm, no guarding, no masses, not rigid and nontender Skin General skin exam: no rashes or lesions noted Neuro General: patient alert, patient awake and tone normal Extrem General: no calf tenderness and no edema Psych Appearance: grossly normal Mental Status: mental status grossly normal Course Vital Signs Vital signs: Vital Signs Pulse 98 H 05/10/23 10:51 Respiratory Rate 22 05/10/23 10:51 Blood Pressure 173/78 H 05/10/23 10:51 Pulse Oximetry 97 05/10/23 10:51 Pulse 98 H 05/10/23 10:51 Pulse 88 05/10/23 11:06 Respiratory Rate 21 05/10/23 11:06 Respiratory Effort Short of Breath 05/10/23 10:56 Respiratory Depth Normal 05/10/23 10:56 Blood Pressure 173/78 H 05/10/23 10:51 Pulse Oximetry 98 05/10/23 11:06 Oxygen Delivery Method Room Air 05/10/23 10:51 Oxygen Flow Rate 0 05/10/23 10:51 Pain Level 5 05/10/23 10:56 Lab/Test Results Lab/Test Results: Laboratory Tests Range/Units 05/10/23 05/10/23 11:05 11:05 WBC (4.4-10.8) 10^3/uL 6.62 RBC (3.93-5.22) 10^6/uL 4.81 Hgb (11.2-15.7) g/dL 11.9 Hct (36.0-46.0) % 37.9 MCV (80-95) fL 79 L MCH (27.0-33.0) pg 24.7 L MCHC (32.0-36.0) % 31.4 L RDW (11.7-14.6) % 14.1 Plt Count (130-400) 10^3/uL 257 MPV (8.0-11.0) fL 9.0 Immature Gran % 0.3 Neutrophils % 69.0 Lymphocytes % 19.8 Monocytes % 9.5 Eosinophils % 1.1 Basophils % 0.3 Nucleated RBC % (0.0-0.3) % 0.0 Absolute Neutrophils (1.2-6.7) 10^3/uL 4.57 Absolute Lymphocytes (1.2-3.4) 10^3/uL 1.31 Absolute Monocytes (0.1-0.8) 10^3/uL 0.63 Absolute Eosinophils (0.0-0.7) 10^3/uL 0.07 Absolute Basophils (0.0-0.2) 10^3/uL 0.02 Sodium (136-145) mmol/L 137 Potassium (3.5-5.1) mmol/L 3.8 Chloride (98-107) mmol/L 104 Carbon Dioxide (21.0-32.0) mmol/L 25.7 Anion Gap (3-11) mmol/L 7.3 BUN (7-18) mg/dL 11 Creatinine (0.55-1.02) mg/dL 0.9 Est GFR (CKD-EPI 2020) (mL/min/1.73m2) 71.39 Glucose (74-106) mg/dL 84 Calcium (8.5-10.1) mg/dL 9.1 Magnesium (1.8-2.4) mg/dL 1.9 Total Bilirubin (0.2-1.0) mg/dL 0.5 AST (15-37) U/L 10 L ALT (14-59) U/L 16 Alkaline Phosphatase (46-116) U/L 140 H Troponin I (<or=60) ng/L < 50 Total Protein (6.4-8.2) g/dL 7.6 Albumin (3.4-5.0) g/dL 3.0 L
[2023-05-10] MEDS: Normal Saline - Diluent 50 ML VIAL IJ (12:26)
[2023-05-10] MEDS: Omnipaque 350 MG/ML 500 ML BTL-Imaging package 100 ML IJ (12:27)
[2023-05-10] MEDS: Normal Saline Flush 10 ML SYR IVP (12:27)
[2023-05-10 14:16] LABS: Troponin I < 50 ng/L (<or=60)
[2023-05-10] MEDS: Aspirin 325 MG TAB PO (14:43)
[2023-05-13 19:31] LABS: Lab Add On Test DONE
[2023-05-13 20:16] LABS: Calculated LDL 131 mg/dL (<100); Cholesterol 176 mg/dL (<200); HDL Cholesterol 33 mg/dL (40-60); TSH 2.31 uIU/mL (0.36-3.74); Triglyceride 61 mg/dL (<150)
[2023-05-13 20:56] LABS: Hemoglobin A1C 6.1 % (<5.7)
== END 2023-05-10 15:37 | disposition home or self-care (01) ==
PROVIDERS: Emergency Provider Student in an Organized Health Care Education/Training Program; PCP Nurse Practitioner Family
DX: R07.9 Chest pain, unspecified (principal)
CPT/HCPCS: 71275; 80053; 80061; 93005; 99285; 71045; 74174; 83036; 83735; 84443; 84484; 85025; 93010; 99284

== ENCOUNTER → 2023-05-25 00:38 | Outpatient (CLI) | payer MEDICARE, SELFPAY ==
--- NOTE | 2023-05-25 07:45 | DI.NM_ITS ---
APPROVED REPORT Exam: Pharmacologic Patient Location: Out-Patient Room/Bed: Stress Nurse: Bianca Vargas RN Ordering Provider:SRIKANTH WATSON, Contact Number: [phone] BMI: 47.58 Baseline Rhythm: Sinus Rhythm Indications: Chest pain Medical History Medical History: Prediabetes, chest pain, HLD, morbid obesity Cardiac Medications: Aspirin Allergies: NKA Cardiac Risk Factors: HLD, prediabetes, obesity Previous Cardiac Procedures: None Pretest Chest Pain Characteristics: None Exercise History: Sedentary Physical Disabilities: Back Lung Sounds: Clear to auscultation Heart Sounds: Regular Stress Test Details Test: Pharmacologic stress testing performed using 0.4 mg of regadenoson per 5 mL given IV over 10 s econds. Reason for pharmacologic stress test: physical limitation. Nuclear Acquisition: Rest Tc-99m/Stress Tc-99m 1 day Rest Isotope: Tc-99m Sestamibi. Dose: 11.5 Date: 05/25/2023 Injection Time: 0930 Stress Isotope: Tc-99m Sestamibi. Dose: 36.0 Date: 05/25/2023 Injection Time: 1112 HR Resting HR Supine: 60 bpm Max Heart Rate (APMHR): 156.490302 bpm Target HR (85% APMHR): 132.369953 bpm Max HR Achieved: 96 bpm % of APMHR: 61.54 Recovery HR: 71 bpm BP Resting BP Supine: 158/74 mmHg Max BP: 174/68 mmHg Recovery BP: 160/64 mmHg ECG Resting ECG: Sinus Rhythm Ectopy: None Stress ECG: Sinus Rhythm ST Change: Nondiagnostic low heart rate Arrhythmia: None Recovery ECG: Sinus Rhythm Recovery ST Change: Nondiagnostic low heart rate Recovery Arrhythmia: None Clinical Stress Symptoms: Mild SOB Angina Score: None Rate Pressure Product: [id number] Stress ECG Conclusion 1. Resting electrocardiogram was within normal limits 2. Patient underwent testing using pharmacologic stress with regadenoson 3. Peak heart rate achieved was 62% of maximal predicted for age 4. Electrocardiographic portion of the test was nondiagnostic 5. See MPI report MPI Conclusion Myocardial perfusion is normal. There is no ischemia or evidence of prior infarction Ejection fraction is 66% with normal wall motion Radiologist Interpretation Radiologist agrees with [employer] Inspector's Interpretation. Radiologist Interpretation by: Roderick Frias MD Interpretation Date/Time: 05/25/2023 18:11:57
[2023-05-25] MEDS: Regadenoson 0.4 MG/5 ML SYR IVP (13:07)
== END ==
PROVIDERS: PCP Nurse Practitioner Family; Visit Provider Nurse Practitioner Family
DX: R07.9 Chest pain, unspecified (principal)
CPT/HCPCS: 78452; 93016; 93018; 93017; J2785

== ENCOUNTER 2023-08-17 03:48 | Outpatient (CLI) | payer MEDICARE, SELFPAY ==
[2023-08-17 11:37] LABS: Anion Gap 7.7 mmol/L (3-11); BUN 16 mg/dL (7-18); CO2 26.3 mmol/L (21.0-32.0); CREATININE 0.9 mg/dL (0.55-1.02); Calcium 8.6 mg/dL (8.5-10.1); Chloride 107 mmol/L (98-107); Estimated GFR 71.39 (mL/min/1.73m2); Glucose 110 mg/dL (74-106); Potassium 3.7 mmol/L (3.5-5.1); Sodium 141 mmol/L (136-145)
== END 2023-08-17 03:49 | disposition home or self-care (01) ==
LOC: LBO 03:48
PROVIDERS: PCP Nurse Practitioner Family; Visit Provider Nurse Practitioner Family
DX: I10 Essential (primary) hypertension (principal)
CPT/HCPCS: 36415; 80048

== ENCOUNTER 2023-11-17 08:19 | Outpatient (CLI) | payer MEDICARE, SELFPAY ==
[2023-11-17 13:29] LABS: BUN 14 mg/dL (7-18); CREATININE 0.9 mg/dL (0.55-1.02); Calcium 8.6 mg/dL (8.5-10.1); Chloride 108 mmol/L (98-107); Estimated GFR 70.95 (mL/min/1.73m2); Glucose 99 mg/dL (74-106); Potassium 4.4 mmol/L (3.5-5.1); Sodium 143 mmol/L (136-145)
[2023-11-18 09:52] LABS: Hepatitis C Ab w Rflx HCV PCR Negative (Negative)
== END 2023-11-17 08:20 | disposition home or self-care (01) ==
LOC: LOS 08:19
PROVIDERS: PCP Nurse Practitioner Family; Referring Provider Nurse Practitioner Family; Visit Provider Nurse Practitioner Family
DX: Z11.59 Encounter for screening for other viral diseases (principal); I10 Essential (primary) hypertension
CPT/HCPCS: 36415; 80048; 86803

== ENCOUNTER 2024-06-14 13:58 | Emergency (ER) | payer MEDICARE, SELFPAY ==
[2024-06-14] VITALS (22 sets, daily range): BP systolic 115–175; BP diastolic 64–135; PULSE 70–91; RESP 11–22; TEMP 36.8–36.9; O2SAT 91–98
--- NOTE | 2024-06-14 14:00 | DI.RAD_ITS ---
Exam(s) XR CHEST 2V PA LATERAL EXAM: XR CHEST 2V PA LATERAL CLINICAL HISTORY: Shortness of breath TECHNIQUE: 2D digital imaging was performed. Two views. COMPARISON: CR XR PORTABLE CHEST AP from 05/10/[address] THORAX ABD/PEL CTA from 05/10/2023 FINDINGS: Exam is limited by under penetration at the lung bases. HEART: Normal size. Aorta: Not dilated. PULMONARY VASCULATURE: Normal. MEDIASTINUM: Unremarkable. LUNGS: Clear. PLEURAL SPACE: No pleural effusion or pneumothorax. BONE:Hardware and left proximal humerus. Degenerative changes in the thoracic spine. SOFT TISSUES: Unremarkable. IMPRESSION: No acute abnormality. DATA REPOSITORY: RADIATION DOSE DELIVERED:
--- NOTE | 2024-06-14 14:00 | RT.EKG_ITS ---
APPROVED REPORT Exam: Resting ECG Reason for Exam: sob Patient Location: E HR:80 bpm ECG Measurements Heart Rate 80 AXIS MI 170 P 21 QRSd 96 QRS 21 QT 378 T 62 QTc 436 Conclusion Sinus rhythm, rate 80 No interval abnormailities No STEMI
--- NOTE | 2024-06-14 14:26 | ED.GENADUL_ITS ---
Discharge Plan Disposition Patient Disposition: Home Condition: Stable Discharge Details Clinical Impression: Exacerbation of reactive airway disease, Hyperlipidemia, Prediabetes, Hypertension Primary Care Provider: Kavya Morgan ED Provider: Luz Caro Home Meds and New Rx's Prescriptions: New albuterol sulfate 90 mcg/actuation HFA aerosol inhaler 2 puff inhalation Q6H PRNQty: 6.7 0RF prednisone 20 mg tablet 40 mg PO DAILY 4 Days Qty: 8 0RF Rx Instructions: Start 06/15/2024 No Action losartan 100 mg tablet 100 mg PO DAILY Qty: 90 3RF rosuvastatin 10 mg tablet 10 mg PO DAILY Qty: 90 3RF ibuprofen 800 mg tablet 800 mg PO BID PRN (Reason: pain) Qty: 60 2RF Rx Instructions: Take 1 pill twice a day with food as needed for pain Discharge Instructions Instructions: Asthma, Adult ED Additional Instructions: You were seen in the emergency department today for evaluation of shortness of breath. In our department you had a full physical examination performed, had laboratory studies that were reassuring, and had a CT scan and x-ray that did not show any sign of blood clot or pneumonia. Your heart appears healthy. You had wheezing that is concerning for reactive airway disease, which can be due to asthma, chronic bronchitis, or COPD. I have prescribed you an inhaler which can be used as needed for shortness of breath and cough. You also need to complete a course of prednisone. You took your first dose of prednisone today, and so should start tomorrow, 2 pills at the same time every day for the next 4 days. You need to follow-up with your primary care provider to discuss today's visit and any symptoms that change, worsen, or persist. You can also return to the emergency department if you have any worsening shortness of breath, change or worsening of your chest pain, fever or chills, or other symptoms that cause you concern. Thank you for allowing us to be part of your care. HPI General Mode of arrival: ambulatory . Date/Time Provider Initiated Documentation: 06/14/24 13:59 . Limitations to Documentation: no limitations . Information obtained by: patient, family and old records reviewed . HPI Narrative: HPI: This is a 63-year-old female patient with a past medical history of hypertension, prediabetes, hyperlipidemia, who is presenting for evaluation of shortness of breath. The patient reports that she was in her normal state of health until last night, when she started to feel short of breath especially when she exerted herself. She has noted a new cough and a stuffy nose, has not noted a fever. She reports that she has had bronchitis and pneumonia in the past and states that this is what that feels like. She endorses a aching tightness in her chest, that is worse with palpation and movement. Does not change significantly with deep breath. Her cough is not productive of sputum, she has had no nausea or difficulty maintaining her p.o. intake. She has no personal history of cardiac or pulmonary disease, has not noted any swelling or discomfort in her legs. She has not tried any medications in the outpatient environment for management of the symptoms, has not yet received COVID or influenza vaccinations Exam: Gen: Awake and alert, in no apparent distress HEENT: Non-icteric sclera, conjunctiva noninjected Neck: Supple, no meningismus Lungs: No apparent respiratory distress, normal respiratory effort. The patient's lung sounds are clear and equal bilaterally with the exception of the right upper/middle lobes, which reveal trace expiratory wheezing CV: Appears well perfused, heart with regular rate and rhythm, strong distal pulses. The patient's anterior chest wall is tender to palpation with no overlying skin changes Abdomen: Non-distended, soft, nontender MSK: Moves 4 extremities without apparent limitation in ROM. There is no unilateral calf swelling or tenderness, no peripheral edema Skin: Visualized skin without rashes, cyanosis. Neuro: Normal Gait, no obvious focal deficits or facial asymmetry. Speaks in full, clear sentences. Psych: Appropriate for situation. MDM: This is a 63-year-old female patient who is presenting for evaluation of shortness of breath x 1 day. My differential includes but is not limited to viral URI, pneumonia, bronchitis. Certainly considered reactive airway disease exacerbation given the focal wheezing, the patient has no personal history of same. I considered pulmonary edema, pleural effusion, pneumothorax. I considered pulmonary embolism, though the patient has no personal history of thromboembolic disease, DVT symptoms, and is without tachycardia. However, due to her age and her intermittent, mild hypoxia to 90% on room air she does not meet PERC criteria for rule out. Considered cardiac abnormalities such as ACS, pericarditis/myocarditis. Considered pleurisy, costochondritis. We will obtain laboratory studies to include Fluvid, CBC, CMP, troponin, D- dimer, and I will proceed with a chest x-ray to better characterize any abnormalities to account for the patient's symptoms. ED Course: I independently interpreted the laboratory studies, which show no significant leukocytosis, anemia, or thrombocytopenia. The chemistry panel is without evidence of electrolyte abnormality, kidney dysfunction, or liver injury. Troponin was negative x 2 checks and by our high-sensitivity troponin protocol does not require further assessment. The D-dimer was elevated, and for this reason we did proceed to CT pulmonary embolism study. I did independently interpreted the patient's chest x-ray which shows no abnormalities to account for her symptoms. CT scan was similarly reviewed by myself, radiology notes no abnormalities, specifically no evidence for pulmonary embolism or other lung parenchyma changes. On reassessment, the patient was noted to have worsening of her wheezing, which is now located in all lung fox, and for this reason I provided her with a duo nebulizer treatment and a dose of prednisone. On reassessment the patient reports that this improved her breathing significantly, and her wheezing had improved. Her oxygenation improved to 94%, and she otherwise remained hemodynamically appropriate. The patient is desiring of discharge, and I am most concerned for reactive airway disease, whether that be asthma, chronic bronchitis, or COPD. I provided her with a prescription for albuterol as well as the remainder of her course of prednisone, 4 days more of 40 mg/day. At this time, the patient has had a full medical evaluation and is safe for discharge to home. They are hemodynamically stable, ambulatory, and tolerating PO. They are understanding of the follow-up plan and return precautions. They left our facility without incident. Luz Caro MD Related Data Home Medications ?Medication ?Instructions ?Recorded ?Confirmed ibuprofen 800 mg tablet 800 mg PO BID PRN pain #60 tabs 05/13/23 06/14/24 losartan 100 mg tablet 100 mg PO DAILY #90 tabs 10/18/23 06/14/24 rosuvastatin 10 mg tablet 10 mg PO DAILY #90 tabs 11/17/23 06/14/24 albuterol sulfate 90 mcg/actuation 2 puff inhalation Q6H PRN #6.7 06/14/24 aerosol inhaler grams prednisone 20 mg tablet 40 mg (2 x 20 mg) PO DAILY 4 days 06/14/24 #8 tabs Previous Rx's ?Medication ?Instructions ?Recorded ibuprofen 800 mg tablet 800 mg PO BID PRN pain #60 tabs 05/13/23 losartan 100 mg tablet 100 mg PO DAILY #90 tabs 10/18/23 rosuvastatin 10 mg tablet 10 mg PO DAILY #90 tabs 11/17/23 albuterol sulfate 90 mcg/actuation 2 puff inhalation Q6H PRN #6.7 06/14/24 aerosol inhaler grams prednisone 20 mg tablet 40 mg (2 x 20 mg) PO DAILY 4 days 06/14/24 #8 tabs Allergies Allergy/AdvReac Type Severity Reaction Status Date / Time lisinopril AdvReac cough Verified 06/14/24 14:10 General Stated Complaint: SOB/SuddenOnset SHANTA: 3 Course Vital Signs Vital signs: Vital Signs Temperature 36.9 C 06/14/24 14:02 Pulse 83 06/14/24 14:02 Respiratory Rate 18 06/14/24 14:02 Blood Pressure 163/82 H 06/14/24 14:02 Pulse Oximetry 93 06/14/24 14:02 Temperature 36.9 C 06/14/24 14:02 Temperature Source Oral 06/14/24 14:02 Pulse 83 06/14/24 14:02 Respiratory Rate 22 06/14/24 14:22 Respiratory Effort Short of Breath 06/14/24 14:22 Respiratory Depth Shallow 06/14/24 14:22 Respiratory Pattern Tachypnea 06/14/24 14:22 Blood Pressure 163/82 H 06/14/24 14:02 Blood Pressure Position Sitting 06/14/24 14:02 Pulse Oximetry 93 06/14/24 14:02 Oxygen Delivery Method Room Air 06/14/24 14:02 Oxygen Flow Rate 0 06/14/24 14:02 Pain Level 4 06/14/24 14:02 Medical Decision Making Quality:SDOH Health Related Social Needs: No Data to Display PFSH All Active Problems (Updated 06/14/24 @ 16:33 by Luz Caro MD) Exacerbation of reactive airway disease (Acute) Hypertension (Chronic) Prediabetes (Acute) Insomnia (Chronic) Osteoarthritis of right knee (Chronic) Hyperlipidemia (Chronic) Diverticulosis of colon (Chronic) Hearing loss (Chronic) Obesity, Class III, BMI 40-49.9 (morbid obesity) (Chronic) Medical History Major depressive disorder Tubular adenoma of colon Surgical History S/P colonoscopy (11/30/18) Family History Mother , AGE 64 COPD (chronic obstructive pulmonary disease) Father , AGE 70 No problems noted. Sister No problems noted. Son No problems noted. Son No problems noted. Maternal Grandfather No problems noted. Maternal Grandmother No problems noted. Paternal Grandfather No problems noted. Paternal Grandmother No problems noted. Social History (Updated 05/12/23 @ 15:44 by Rangel Leon) Smoking/Tobacco Use Status: Never Smoking risk assessment performed?: Yes Alcohol Intake: never Drug use: Never Substance use type: does not use Household members: spouse Housing: house Number of Children: 2 number of grandchildren: 1 Communication Needs: Hard of Hearing Do you need help understanding health information?: Rarely Pets and animals: Yes Pets and animals: dog(s) Sexually active: No Do you think of yourself as: straight/heterosexual Current gender identity: male What is your relationship status?: How often do you talk on the phone with friends or family?: never How often do you get together with friends or relatives?: never Do you belong to any clubs or organized social groups?: no Panel score (0-1 are the most socially isolated patients): 1 What type of physical activity do you participate in: none Duration: < 15 minutes/day Frequency: 1-2 times per week Alpa/Cheondoism: Roman Catholic Special alpa needs: No Seatbelt use: always Drive intox or ride w/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
[2024-06-14 14:32] LABS: Abs Immature Grans 0.04 10^3/uL (0.0-0.06); Absolute Basophil Count 0.03 10^3/uL (0.0-0.2); Absolute Eosinophil Count 0.32 10^3/uL (0.0-0.7); Absolute Lymphocyte Count 1.19 10^3/uL (1.2-3.4); Absolute Monocyte Count 0.58 10^3/uL (0.1-0.8); Absolute Neutrophil Count 5.28 10^3/uL (1.2-6.7); Basophils % 0.4 %; Eosinophils % 4.3 %; HCT 39.7 % (36.0-46.0); HGB 12.1 g/dL (11.2-15.7); Immature Grans % 0.5 %; MCH 24.5 pg (27.0-33.0); MCHC 30.5 % (32.0-36.0); MCV 81 fL (80-95); MPV 9.3 fL (8.0-11.0); Monocytes % 7.8 %; Platelet Count 265 10^3/uL (130-400); RBC 4.93 10^6/uL (3.93-5.22); RDW 14.5 % (11.7-14.6); RDW-SD 42.2 fL; WBC 7.44 10^3/uL (4.4-10.8)
[2024-06-14 14:52] LABS: ALT 14 U/L (14-59); AST 11 U/L (15-37); Albumin 3.2 g/dL (3.4-5.0); Alkaline Phosphatase 151 U/L (46-116); Anion Gap 6.9 mmol/L (3-11); BUN 12 mg/dL (7-18); Bilirubin, Total 0.32 mg/dL (0.2-1.0); CO2 28.1 mmol/L (21.0-32.0); CREATININE 0.9 mg/dL (0.55-1.02); Calcium 8.8 mg/dL (8.5-10.1); Chloride 109 mmol/L (98-107); Estimated GFR 70.95 (mL/min/1.73m2); Glucose 86 mg/dL (74-106); Magnesium 2.1 mg/dL (1.8-2.4); Potassium 4.3 mmol/L (3.5-5.1); Sodium 144 mmol/L (136-145); Total Protein 7.8 g/dL (6.4-8.2); Troponin I 5 ng/L (<or=51)
[2024-06-14 15:16] LABS: COVID-19 PCR Negative (Negative); Influenza A PCR Negative (Negative); Influenza B PCR Negative (Negative); RSV PCR Negative (Negative)
[2024-06-14 15:17] LABS: Source Nasopharynx
[2024-06-14 15:33] LABS: D-Dimer 562 ng/mlFEU (<500)
[2024-06-14 15:58] LABS: Troponin I 4 ng/L (<or=51)
--- NOTE | 2024-06-14 15:58 | DI.CT_ITS ---
Exam(s) CT CHEST PE CTA EXAM: CT CHEST PE CTA CLINICAL HISTORY: SOB, CP, elevated dimer. TECHNIQUE: Imaging Protocol: Axial CT angiography was performed with multi-slice acquisition and mu lti-planar reconstructions as well as axial, coronal and sagittal MIP reconstructions. Computer aided detection (CAD) was utilized. CONTRAST MATERIAL: Intravenous: Omnipaque 350 Contrast volume:100 ml COMPARISON: CT CT THORAX ABD/PEL CTA from 05/10/2023 CR XR CHEST 2V PA LATERAL from 06/14/2024 FINDINGS: Pulmonary Arteries: Suboptimal opacification of the pulmonary arteries no evidence of filling defect to suggest pulmonary emboli. Mediastinum and [place]: No dominant adenopathy or fluid collection. Pulmonary parenchyma: No consolidation or dominant measurable mass. Pleura: No effusion or pneumothorax. Heart: The heart is mildly dilated, left atrium. Mitral annular calcifications. No coronary artery calcifications are seen. Aorta: Thoracic aorta non-dilated. No dissection. Upper abdomen: No acute findings. Cholelithiasis. No abnormal gallbladder distention or wall thi ckening. Bones: Unremarkable for age. Tubes, Catheters, and Lines: None Soft tissues: Unremarkable. IMPRESSION: No evidence of pulmonary embolism or other acute abnormality. RADIATION DOSE DELIVERED: Total DLP DATA REPOSITORY: All CT scans at this facility are submitted to the National Radiology Data Registry (NRDR) Dose Index Registry (DIR) with the [employer] (ACR). RADIATION OPTIMIZATION: All CT scans at this facility use at least one of these dose optimization te chniques: automated exposure control; mA and/or kV adjustment per patient size (includes targeted exa ms where dose is matched to clinical indication); or iterative reconstruction.
[2024-06-14] MEDS: Normal Saline - Diluent 50 ML VIAL IJ (15:59)
[2024-06-14] MEDS: Omnipaque 350 MG/ML 100 ML BTL IJ (15:59)
[2024-06-14] MEDS: predniSONE 20 MG TAB 40 MG PO (16:16)
[2024-06-14] MEDS: Albuterol/Ipratropium 3 ML UPD VIAL UPD (16:17)
== END 2024-06-14 16:49 | disposition home or self-care (01) ==
PROVIDERS: Emergency Provider Emergency Medicine; PCP Nurse Practitioner Family
DX: J45.901 Unspecified asthma with (acute) exacerbation (principal); E78.5 Hyperlipidemia, unspecified; R73.03 Prediabetes; I10 Essential (primary) hypertension
CPT/HCPCS: 71275; 80053; 87637; 93005; 71046; 83735; 84484; 85025; 85379; 93010; J3490; J7512; J7620

== ENCOUNTER 2024-06-20 11:46 | Outpatient (CLI) | payer MEDICARE, SELFPAY ==
[2024-06-20] MEDS: Levalbuterol HFA 15 GM INH 4 PUFF IH (14:22)
[2024-06-20] MEDS: Inhaler, Assist Device 1 EACH MC (14:23)
--- NOTE | 2024-06-23 09:39 | W.PFT ---
Date of service: 06/20/24 Time of Service: 12:58 Pulmonary Function Test Result Indications: Cough Interpretation Spirometry: There is mild airflow limitation. The FVC is low. No bronchodilator response. Lung Volumes: Normal lung volumes Diffusion Capacity: Normal diffusion Airway Pressure: Increased airways resistance Impression There is mild airflow obstruction. The low FVC is likely pseudo-restriction due to an elevated BMI. Clinical Correlation therefore is recommended.
== END 2024-06-20 11:47 | disposition home or self-care (01) ==
LOC: RT 11:47
PROVIDERS: PCP Nurse Practitioner Family; Visit Provider Nurse Practitioner Family
DX: J45.901 Unspecified asthma with (acute) exacerbation (principal)
CPT/HCPCS: 94060; 94726; 94729